=== PATIENT | female | born 1980 | race Caucasian/White ===

== ENCOUNTER 2023-09-12 02:25 | Emergency (ER) | payer BC ==
[2023-09-12] MEDS ORDERED: Sodium Chloride 0.9% 1,000 ML IV ONE (02:45)
[2023-09-12] MEDS ORDERED: Ondansetron 4 MG/2 ML SDV IVPUSH ONE (03:00)
[2023-09-12] MEDS ORDERED: Sodium Chloride 0.9% 10 ML Syringe FLUSH PRN (03:00)
[2023-09-12 03:13] LABS: BASOPHILS PERCENT AUTO 0.3 % (0.2-1.2); EOSINOPHILS ABSOLUTE AUTO 0.3 x10^3/uL (0.0-0.5); EOSINOPHILS PERCENT AUTO 2.6 % (0.0-4.0); HEMATOCRIT 40.6 % (33.0-47.0); HEMOGLOBIN 13.5 g/dL (12.0-16.0); IMMATURE GRAN ABSOLUTE AUTO 0.05 x10^3/uL (0.00-0.07); LYMPHOCYTES ABSOLUTE AUTO 3.6 x10^3/uL (1.0-4.8); LYMPHOCYTES PERCENT AUTO 38.2 % (25.0-50.0); MEAN CORPUSCULAR HEMOGLOBIN 32.5 pg (26.0-32.0); MEAN CORPUSCULAR HGB CONC 33.3 g/dL (32.0-36.0); MEAN CORPUSCULAR VOLUME 97.8 fL (78.0-93.0); MONOCYTES ABSOLUTE AUTO 0.7 x10^3/uL (0.0-0.8); MONOCYTES PERCENT AUTO 7.4 % (2.0-11.0); NEUTROPHILS ABSOLUTE AUTO 4.8 x10^3/uL (1.8-7.7); PLATELET COUNT,PLT 294 x10^3/uL (130-400); RED BLOOD CELL COUNT 4.15 x10^6/uL (4.00-5.50); WHITE BLOOD CELL COUNT,WBC 9.5 x10^3/uL (4.0-10.0)
[2023-09-12 03:21] LABS: A/G RATIO 1.06; ALANINE AMINOTRANSFERASE,ALT 34 U/L (14-59); ALBUMIN 3.6 g/dL (3.4-5.0); ALKALINE PHOSPHATASE 74 U/L (46-116); ASPARTATE AMNIOTRANSFERASE,AST 20 U/L (15-37); BILIRUBIN TOTAL 0.3 mg/dL (0.2-1.0); BLOOD UREA NITROGEN,BUN 6 mg/dL (7-18); CALCIUM 8.6 mg/dL (8.5-10.1); CARBON DIOXIDE,CO2 21 mmol/L (21-32); CHLORIDE,CL 102 mmol/L (98-107); CREATININE 0.9 mg/dL (0.55-1.02); ETHANOL BLOOD MEDICAL 188 mg/dL (0-3); GLUCOSE RANDOM 186 mg/dL (70-99); MAGNESIUM 1.9 mg/dL (1.8-2.4); SODIUM,NA 140 mmol/L (136-145)
[2023-09-12 03:22] LABS: ANION GAP 19.8 mmol/L (5-15); ESTIMATED GFR 82 mL/min (>=60)
[2023-09-12 03:23] LABS: POTASSIUM,K 2.8 mmol/L (3.5-5.1)
[2023-09-12] MEDS ORDERED: NS with KCl 40mEq 1,000 ML IV SCH (03:45)
[2023-09-12 07:20] LABS: AMPHETAMINES SCREEN, URINE NEGATIVE (NEGATIVE); BARBITURATE SCREEN,URINE NEGATIVE (NEGATIVE); BENZODIAZEPINES SCREEN,URINE POSITIVE (NEGATIVE); BUPRENORPHINE SCREEN,URINE NEGATIVE (NEGATIVE); COCAINE METABOLITES,URINE NEGATIVE (NEGATIVE); METHADONE SCREEN, URINE NEGATIVE (NEGATIVE); METHAMPHETAMINE SCREEN, URINE NEGATIVE (NEGATIVE); OXYCODONE SCREEN,URINE NEGATIVE (NEGATIVE); PCP SCREEN,URINE NEGATIVE (NEGATIVE); THC SCREEN,URINE 50 NG/ML NEGATIVE (NEGATIVE)
== END 2023-09-12 06:40 | disposition home or self-care (01) ==
LOC: VM.ED 02:25
DX: F10.10 Alcohol abuse, uncomplicated (principal); Z91.041 Radiographic dye allergy status
CPT/HCPCS: 36415; 80053; 80305-QW; 80307; 81025; 83735; 85025; 96361; 96365; 96366; 96375; 99285-25; J2405; J3480; J7030